=== PATIENT | male | born 1995 | race Caucasian/White ===

== ENCOUNTER 2024-03-07 10:39 | Emergency (ER) | payer OTHER ==
[2024-03-07 11:06] VITALS: O2SAT 98
--- NOTE | 2024-03-07 11:48 | XRAY Report ---
PROCEDURE: Finger(s) RT INDICATIONS: Trauma TECHNIQUE: AP hand, 2 views of the fourth finger(s) acquired. COMPARISON: None. FINDINGS: Bones: No fractures or dislocations. No suspicious bony lesions. Soft tissues: No suspicious soft tissue calcifications or masses. IMPRESSION: No acute bony abnormality. Reviewed by: Remi Miranda MD on 03/07/2024 10:47 AM PEDRO Approved by: Remi Miranda MD on 03/07/2024 10:47 AM PEDRO Station ID: [id number]
[2024-03-07] MEDS: IBUPROFEN 800 MG TABLET PO STA (12:08)
--- NOTE | 2024-03-07 12:14 | ED Physician Documentation ---
PD HPI UPPER EXT INJURY - Stated complaint Stated Complaint: RT HAND INJ - Chief complaint Chief Complaint: Trauma Ext - History obtained from History obtained from: Patient - History of Present Illness Location: Right, Finger (4th) Pain level max: 5 Pain level now: 5 Improved by: Rest Worsened by: Moving, Palpating Associated symptoms: Swelling, Discolored. No: Weakness, Numbness, Tingling Contributing factors: No: Anticoagulated, Prior ortho surgery - Additonal information Additional information: 29-year-old male was at work today, he is right-handed, he was lifting a heavy object with a customer when the customer dropped their end and his right fourth digit was crushed. Worse with movement. Better with rest. He is right-handed. No numbness or tingling. No lacerations. No bleeding. Tetanus up-to-date. Review of Systems Constitutional: denies: Fever PD PAST MEDICAL HISTORY - Past Medical History Past Medical History: No - Past Surgical History Past Surgical History: No - Present Medications Home Medications: Ambulatory Orders Medication Instructions Recorded Confirmed No Known Home Medications 03/07/24 03/07/24 - Allergies Allergies/Adverse Reactions: Allergies Allergy/AdvReac Type Severity Reaction Status Date / Time No Known Drug Allergies Allergy Verified 03/07/24 10:59 - Social History Does the pt smoke?: No Smoking Status: Never smoker Does the pt drink ETOH?: No - Immunizations Immunizations are current?: Yes - POLST Patient has POLST: No PD ED PE NORMAL - Vitals Vital signs reviewed: Yes - General General: Alert and oriented X 3, No acute distress - HEENT HEENT: Moist mucous membranes - Neck Neck: Supple, no meningeal sign - Cardiac Cardiac: RRR - Respiratory Respiratory: No respiratory distress, Clear bilaterally - Derm Derm: Warm and dry - Extremities Extremities: Other (R hand - Swelling and bruising to the proximal phalanx of the right fourth digit. Limited range of motion secondary to pain. Neurovascular intact. No subungual hematoma. No lacerations. Otherwise normal examination of the hand. Tender to palpation over the proximal phalanx as well. NVI) - Neuro Neuro: Alert and oriented X 3 - Psych Psych: Normal mood, Normal affect Results - Vitals Vitals: Vital Signs - 24 hr 03/07/24 10:57 Temperature 36.4 C L Heart Rate 75 Respiratory 20 Rate Blood Pressure 143/87 H O2 Saturation 98 Oxygen O2 Source Room air - Rads (name of study) R hand xray Relevant Findings:: Final report received, See rad report PD Medical Decision Making - ED course Complexity details: reviewed results, re-evaluated patient, considered differential, d/w patient ED course: No acute findings on x-ray. Placed in a foam finger splint for comfort. Patient declines pain medication for home. Neurovascular intact. L&I [place] [id number]. Patient will follow-up with his doctor for refill released to work, or release him to light duty today. Patient counseled regarding signs and symptoms for which I believe and urgent re-evaluation would be necessary. Patient with good understanding of and agreement to plan and is comfortable going home at this time This document was made in part using voice recognition software. While efforts are made to proofread this document, sound alike and grammatical errors may occur. Departure - Departure Disposition: 01 Home, Self Care Clinical Impression: Crush injury to finger Qualifiers: Encounter type: initial encounter Qualified Code(s): S67.10XA - Crushing injury of unspecified finger(s), initial encounter Condition: Good Instructions: ED Sprain Finger Follow-Up: Sahil Urban MD [Primary Care Provider] - Within 1 week Comments: You were placed in a splint today for the crush injury to the finger. Likely there are no fractures or dislocations on x-ray. Wear the splint as needed for comfort. You can use Motrin or Tylenol at home as needed for pain. Please return if you worsen. Forms: PCP List, Activity restrictions
[2024-03-07 12:30] VITALS: BP 139/94
== END 2024-03-07 12:31 | disposition home or self-care (01) ==
LOC: ED 10:39
DX: S67.194A Crushing injury of right ring finger, initial encounter (principal); W22.8XXA Striking against or struck by other objects, initial encounter
CPT/HCPCS: 1040M; 73140; 99283; A9270